=== PATIENT | male | born 1965 | race Caucasian/White ===

== ENCOUNTER 2017-04-28 09:04 | Day surgery (SDC) | payer BC ==
[~2017-04-28 09:04] MED LIST: Lactated Ringers 1,000 ML IV SCH; Sodium Chloride 0.9% 10 ML Syringe FLUSH PRN
--- NOTE | 2017-04-28 10:12 | PCM.HPR ---
H & P Addendum review - H & P Addendum Review Date of Original H & P: 04/08/17 Date Reviewed: 04/28/17 Time Reviewed: 10:12 Patient was Examined: No Changes
[2017-04-28] MEDS ORDERED: fentaNYL 100 MCG/2 ML SDV ONE ×2 (10:17→10:22)
[2017-04-28] MEDS ORDERED: Propofol 200 MG/20 ML SDV ONE ×2 (10:18→10:22)
[2017-04-28] MEDS ORDERED: Midazolam 1 MG/ML 2 ML SDV ONE ×2 (10:18→10:22)
[2017-04-28] MEDS ORDERED: Lidocaine 2% 5 ML SDV ONE (10:22)
--- NOTE | 2017-04-28 11:04 | PCM.OPNOTE ---
- General Post-Op/Procedure Note Date of Surgery/Procedure: 04/28/17 Operative Procedure(s): EGD. Colonoscopy with polypectomy Findings: Normal EGD; colon polyps X 5 Pre Op Diagnosis: GERD. Colon Screening Post-Op Diagnosis: Same Anesthesia Technique: MAC Primary Surgeon: Mejia Petersen Anesthesia Provider: Prema Cook Pathology: Colon Polyps EBL in mLs: 0 Complications: None Condition: Good
--- NOTE | 2017-04-28 17:41 | OR ---
Date of Procedure: 04/28/2017 PREOPERATIVE DIAGNOSES: 1. Gastroesophageal reflux disease. 2. Colon screening. POSTOPERATIVE DIAGNOSES: 1. Normal esophagogastroduodenoscopy. 2. Colon polyps. PROCEDURES: 1. EGD. 2. Colonoscopy with polypectomy. ANESTHESIA: IV sedation. DESCRIPTION OF PROCEDURE: The patient was brought to the procedure room, where IV sedation was administered. Oral bite block was placed and the upper endoscope advanced into the esophagus under direct vision without difficulty. Vocal cords were viewed and were normal. The scope was advanced to the 3rd portion of the duodenum. Duodenum and pylorus were normal. Antrum and body of the stomach were normal. Retroflexion reveals a normal-appearing fundus. The squamocolumnar junction was normal. There is no evidence of reflux esophagitis. Air was removed from the stomach and the scope withdrawn through the remaining esophagus which appears normal. The patient tolerated this portion of the procedure well. Next, colonoscopy was performed after digital rectal exam was done which was normal. Colonoscope was inserted and advanced to the level of the cecum, which I am fairly confident was reached because I could visualize the ileocecal fold. I could not see behind the fold and did not visualize the appendiceal orifice. There was a 6 mm sessile polyp located there that I removed, but was unable to locate and retrieve. The ascending, transverse, and descending colon all appeared normal. Sigmoid colon had 6 to 8 mm semi-pedunculated polyps located at 40, 35, and 25 cm from the anal verge. All these were removed with a cautery snare and retrieved in the polyp trap. Lastly, there was an 8 mm pedunculated polyp located in the rectum, 10 cm from the anal verge that was removed with a cautery snare and retrieved in the polyp trap. Retroflexion was normal. Air was removed and the scope withdrawn. The patient tolerated the procedure well and returned to recovery in stable condition. The patient to follow up with Omar Mack next week for review of pathology report. Assuming at least some of these polyps are adenomatous, he should undergo a repeat colonoscopy in 3 years. If all the polyps are hyperplastic, he could wait 10 years until his next colon screening. MELIZA LANGE MD /[id number]
== END 2017-04-28 12:05 | disposition home or self-care (01) ==
LOC: LL.SDS 09:04
PROVIDERS: ATTEND Surgery
DX: Z12.11 Encounter for screening for malignant neoplasm of colon (principal); D12.5 Benign neoplasm of sigmoid colon; D12.8 Benign neoplasm of rectum; K63.5 Polyp of colon; K21.9 Gastro-esophageal reflux disease without esophagitis; E78.5 Hyperlipidemia, unspecified; Z90.49 Acquired absence of other specified parts of digestive tract; Z98.890 Other specified postprocedural states; Z79.84 Long term (current) use of oral hypoglycemic drugs
CPT/HCPCS: 43235; 45385; J2250; J2704; J3010; J7120; 00740

== ENCOUNTER 2022-02-25 12:48 | Day surgery (SDC) | payer BC ==
[~2022-02-25 12:48] MED LIST changes: -Lactated Ringers 1,000 ML IV SCH; +Propofol 200 MG/20 ML SDV ONE
[2022-02-25] MEDS: Lactated Ringers 1,000 ML IV SCH (13:39)
[2022-02-25] MEDS ORDERED: Propofol 200 MG/20 ML SDV ONE (13:48)
[2022-02-25 16:01] VITALS: BP 142/94; PULSE 66
== END 2022-02-25 15:15 | disposition home or self-care (01) ==
LOC: LL.SDS 12:48
PROVIDERS: ATTEND Surgery
DX: Z12.11 Encounter for screening for malignant neoplasm of colon (principal); D12.4 Benign neoplasm of descending colon; D12.3 Benign neoplasm of transverse colon; K21.9 Gastro-esophageal reflux disease without esophagitis; E78.5 Hyperlipidemia, unspecified; N18.30 Chronic kidney disease, stage 3 unspecified; M25.512 Pain in left shoulder; M25.551 Pain in right hip; Z86.010 Personal history of colon polyps; Z98.890 Other specified postprocedural states; Z90.49 Acquired absence of other specified parts of digestive tract; Z79.899 Other long term (current) drug therapy
CPT/HCPCS: J2704; J7120